=== PATIENT | male | born 1970 | race American Indian/Alaskan Native ===

== ENCOUNTER 2021-08-29 12:07 | Outpatient (CLI) | payer OTHER ==
--- NOTE | 2021-08-29 14:44 | XRay Report ---
RIGHT SHOULDER 3 VIEWS INDICATION / CLINICAL INFORMATION: RIGHT SHOULDER PAIN. COMPARISON: None available. FINDINGS: BONES / JOINT(S): No acute fracture or subluxation. No significant arthritis. SOFT TISSUES: No significant abnormality. ADDITIONAL FINDINGS: None. Signer Name: Fredy Eduardo MD Signed: 08/29/2021 2:39 PM Workstation Name: [email or web address]
--- NOTE | 2021-08-29 14:45 | XRay Report ---
BILATERAL KNEES 3 VIEWS EACH INDICATION / CLINICAL INFORMATION: BILATERAL KNEE PAIN. COMPARISON: None available. FINDINGS: BONES / JOINT(S): No acute fracture or subluxation. No significant arthritis. SOFT TISSUES: No significant abnormality. ADDITIONAL FINDINGS: None. Signer Name: Fredy Eduardo MD Signed: 08/29/2021 2:41 PM Workstation Name: [id number]
== END 2021-08-29 12:08 | disposition home or self-care (01) ==
LOC: XRAY 12:07
PROVIDERS: ATTEND Internal Medicine
DX: M25.562 Pain in left knee (principal); M25.561 Pain in right knee; M19.011 Primary osteoarthritis, right shoulder